=== PATIENT | male | born 1950 | race Caucasian/White ===

== ENCOUNTER 2018-07-21 20:04 | Emergency (ER) | payer OTHER ==
[2018-07-21] MEDS ORDERED: ERYTHROMYCIN 0.5% 1 GM OPHT.OINT EACHEYE ONE (21:30)
--- NOTE | 2018-07-21 21:31 | EDPHY ---
General Time Seen by Provider: 07/21/18 21:25 Narrative: CHIEF COMPLAINT: "stye in my eye." HISTORY OF PRESENT ILLNESS: Patient presents with complaints of stye. This is the right eye lower lid. He 1st noticed it 2 days ago. It is somewhat bothersome to him but not painful. He has no headache or fever. No redness surrounding the eye. He does have some irritation of the eyes bilaterally. He has no difficulty with vision. He has no painful movement of the eyes or diplopia. No trauma. No use of contact lens but does wear reading glasses. No other associated complaints or modifying factors. REVIEW OF SYSTEMS: 10 systems were reviewed and negative with the exception of the elements mentioned in the history of present illness. PCP: [facility] SPECIALISTS: None PAST MEDICAL HISTORY: Hypertension. PAST SURGICAL HISTORY: No surgical history SOCIAL HISTORY: Nonsmoker. 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 EOM symmetric and painless without diplopia. Right lower lid stye noted without any surrounding erythema or cellulitis. There is mild conjunctival injection without any hyphema, subconjunctival hemorrhage or evidence of iritis. ENT, Mouth: Mucous membranes moist. Poor dentition Cardiovascular: Regular rate and rhythm Skin: Warm and dry, no rash. No facial cellulitis, periorbital cellulitis, or abscess of the face. Extremities: Nontender, no pedal edema Psychiatric: Mood and affect normal DIFFERENTIAL DIAGNOSES: Including but not limited to stye, chalazion, conjunctivitis MDM: 9:30 p.m. Side to the right eye lower lid with no evidence of iritis, subconjunctival hemorrhage, or hyphema. This is atraumatic. He is well-appearing with no evidence of periorbital cellulitis or orbital cellulitis. Mild conjunctivitis bilaterally. He is well-appearing and nontoxic. Vital signs are within normal limits. We discussed warm compresses to the right eye frequently. We discussed erythromycin ointment to both eyes. We discussed follow up with Ophthalmology in ED precautions. I have answered all his questions. Discharged home stable condition SUPERVISION: This patient was independently evaluated without direct involvement of or examination by the attending physician. CONSULTATION: None - History Smoking Status: Heavy smoker - Objective Vital Signs: Initial Vital Signs Temperature (C) 97.7 F 07/21/18 20:09 Heart Rate 84 07/21/18 20:09 Respiratory Rate 16 07/21/18 20:09 Blood Pressure 153/81 H 07/21/18 20:09 O2 Sat (%) 94 07/21/18 20:09 O2 Delivery Mode Room Air Allergies/Adverse Reactions: No Known Allergies Allergy (Unverified 07/21/18 20:12) Home Medications: Medication Instructions Recorded NK [No Known Home Meds] 07/21/18 Medications Given: Discontinued Medications Erythromycin (Erythromycin 0.5%) 1 susan EACHEYE ONCE ONE Stop: 07/21/18 21:31 Last Admin: 07/21/18 21:43 Dose: 1 susan Departure - Departure Disposition: Home, Routine, Self-Care Clinical Impression: Hordeolum of right eye Qualifiers: Hordeolum type: externum Eyelid: lower Qualified Code(s): H00.012 - Hordeolum externum right lower eyelid Condition: Good Instructions: Connie (Into the eye)Donna (ED) Additional Instructions: 1. Erythromycin ointment to the lower eyelid of both eyes 3 times daily for 7 days 2. Warm compresses to the right eye 6 times daily 3. Contact engine repairer service on Monday for definitive care as needed 4. Contact primary care physician on Monday for outpatient follow-up 5. ED precautions as discussed for redness around the eye, painful movement of the eye, double vision, headache, fever Referrals: Charles Cates MD [Medical Doctor] - As per Instructions [facility],. [Clinic] - As per Instructions
[2018-07-21 21:45] VITALS: BP 149/98
== END 2018-07-21 22:20 | disposition home or self-care (01) ==
LOC: EDUNIT#
DX: H00.012 Hordeolum externum right lower eyelid (principal); F17.200 Nicotine dependence, unspecified, uncomplicated; Z59.0 Homelessness

== ENCOUNTER → 2018-11-14 | Outpatient (CLI) | payer OTHER | END | disposition home or self-care (01) | LOC: FIMAGING 13:45 | PROVIDERS: ATTEND Physician Assistant | DX: R76.11 Nonspecific reaction to tuberculin skin test without active tuberculosis (principal); I51.7 Cardiomegaly; R91.8 Other nonspecific abnormal finding of lung field ==